=== PATIENT | female | born 1930 | race Caucasian/White ===

== ENCOUNTER 2020-09-07 10:27 | Inpatient (IN) | payer MEDICARE, MEDICAID ==
[~2020-09-07] VITALS: Ht 157.5 cm; Wt 60.7 kg
--- NOTE | ~2020-09-07 | CON ---
[address] [address] CONSULTATION Name: LAURA LOGAN Room: [address] IN M.R.#: [id number] Admission: 09/07/20 Attend Phys: Florence Moctezuma Discharge: Date of : [birth year] Report #: [id number] THIS REPORT FOR: cc: Tevin Lutz William F. DO Biggs, F. Douglas MD [facility] ~ DATE OF CONSULTATION: 09/12/2020 CARDIOLOGY CONSULTATION HISTORY OF PRESENT ILLNESS: I was asked by Dr. Nga Jackson to see this 89-year-old white female in Cardiology consultation for evaluation and treatment of tachycardia. This lady is in atrial fibrillation with rapid ventricular response. She was in atrial fibrillation when she came to the ER on 09/07/2020. She is unable to give a history secondary to dementia. She was found unresponsive, I believe while eating, and she was found to be hypotensive. That was at the shelter. She was brought in and felt to be septic. She apparently has urosepsis. She was hypotensive. She did respond to treatment. She was apparently ready to go home today and had become tachycardic and hypotensive. I believe her heart rate was around 140 and her blood pressure was 90/50. Additional problems include hypercholesterolemia, seizure disorder, COPD and hypertension. She has been on Eliquis for anticoagulation and she has been on diltiazem CD 180 mg daily for rate control. She was also on Toprol-XL 25 mg daily, presumably for both her blood pressure and rate control. Again, she cannot give a history. Her EKG initially in the ER showed atrial fibrillation with a rapid ventricular response. The heart rate was 104, I believe. There is low voltage in the extremities, in the precordial leads. There were nonspecific T abnormalities in the anterior leads. There was a prolonged QT interval. All of her strips in fact show atrial fibrillation. Some of them are within normal rate, some of them are tachycardic. She had atrial fibrillation with a rapid rate on the 1st and on the 2nd. So, essentially she has been having atrial fibrillation with a rapid rate since she came in, on and off at least. Her EKG today shows atrial fibrillation with a rapid ventricular response. There is low voltage QRS. 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 There are no acute changes here. There are nonspecific T abnormalities. PAST MEDICAL HISTORY: As described above. HOME MEDICATIONS: Included Eliquis 5 mg b.i.d., atorvastatin 80 mg daily at bedtime, Omnicef 300 mg b.i.d., diltiazem extended release 180 mg daily, Prozac 20 mg daily, Lasix 20 mg daily, looks like DuoNeb p.r.n., Keppra 750 mg b.i.d., melatonin 3 mg at bedtime, memantine extended release 21 mg daily, metoprolol succinate or Toprol-XL 25 mg b.i.d., mirtazapine 7.5 mg daily, potassium 20 mEq daily. [address] [place] [address] CONSULTATION Name: DOREENLAURA M Room: [address] IN M.R.#: [id number] Admission: 09/07/20 Attend Phys: Florence Moctezuma Discharge: Date of : [birth year] Report #: [id number] ALLERGIES: INCLUDE MORPHINE AND SULFA. REVIEW OF SYSTEMS: Unobtainable from her. FAMILY HISTORY: Also unobtainable. SOCIAL HISTORY: She does not smoke. Apparently, no alcohol use, no drug use. In truth, the social history is actually unobtainable as well, it is obtained from the chart. Admission chest x-ray showed no acute cardiopulmonary process, chronic interstitial lung disease, right-sided PICC line, terminates in the atriocaval junction. PHYSICAL EXAMINATION: GENERAL: She presents as a well-developed, well-nourished elderly white female in no acute distress. She cannot carry on a conversation. HEENT: Head is atraumatic. Eyes are clear. NECK: Supple. There is no jugular venous distention or hepatojugular reflux. Thyroid is not enlarged. There is no adenopathy. SKIN: Warm and dry. Mucous membranes are moist. LUNGS: Clear to auscultation and percussion. There were decreased breath sounds and an increased expiratory phase bilaterally. HEART: Revealed normal first and second heart sound. There is no S4. There is no S3. There are no murmurs, rubs, thrills, heaves or gallops. PMI is nondisplaced. Rhythm was rapid and irregularly irregular. ABDOMEN: Soft, flat, nontender, no palpable masses and no organomegaly. EXTREMITIES: Reveal no cyanosis, clubbing or edema. The patient did not mentate normally, but did move all extremities normally. IMPRESSION: 1. Atrial fibrillation with rapid ventricular response in the context of chronic atrial fibrillation and loss of rate control. 2. Urosepsis. 3. Hypotension. 4. Hypercholesterolemia. 5. Seizure disorder. 6. Chronic obstructive pulmonary disease. 7. Essential hypertension. 8. 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 RECOMMENDATIONS: Since she is hypotensive, we cannot give her a beta vincent or calcium channel vincent. It would be reluctant to give her amiodarone in this [address] [address] CONSULTATION Name: LAURA LOGAN Room: [address] IN .R.#: [id number] Admission: 09/07/20 Attend Phys: Florence Moctezuma Discharge: Date of : [birth year] Report #: [id number] context as well. So, she should be digitalized and hopefully with rate control, her blood pressure will come up. If rate control does not bring her blood pressure up, then she will need something like Levophed or Atilio-Synephrine to bring her blood pressure up. She may need fluids. I would check a CBC to see if she is bleeding and check to see if she is septic. Apparently, urine was not sent for culture, so she is being treated blindly. Thank you very much for asking me to see the patient. If there are any questions, please feel free to contact me. By: [id number]. Jus Conway MD, FACC /nt
[2020-09-07 10:29] VITALS: BP 88/46
--- NOTE | 2020-09-07 10:39 | NUR ---
PT DPOA CONTACTED AND PERMISSIN GIVEN TO TREAT PT.
[2020-09-07] MEDS ORDERED: IPRAT-ALBUT 0.5-3 ML INH (10:46)
[2020-09-07] MEDS ORDERED: KEPPRA750 MG PO (10:46)
[2020-09-07] MEDS ORDERED: MELATONIN3 M1 PO (10:47)
[2020-09-07] MEDS ORDERED: MEMANTINE HCL E21 MG PO (10:47)
[2020-09-07] MEDS ORDERED: TOPROL XL25 MG PO (10:47)
[2020-09-07] MEDS ORDERED: POTASSIUM20 PO (10:48)
[2020-09-07] MEDS ORDERED: MIRTAZAPINE7.5 MG PO (10:48)
[2020-09-07 10:59] LABS: URINE BILIRUBIN NEGATIVE (Negative); URINE BLOOD 2+ (Negative); URINE CLARITY CLEAR; URINE COLOR YELLOW; URINE GLUCOSE-RANDOM NEGATIVE (Negative); URINE KETONES NEGATIVE (Negative); URINE LEUKOCYTES 3+ (Negative); URINE NITRITE POSITIVE (Negative); URINE PROTEIN TRACE (Negative); URINE UROBILINOGEN 0.2 E.U./dl (0.2-1.0)
--- NOTE | 2020-09-07 11:02 | NUR ---
IV INSERTED BY IVIS BENAVIDES IN THE PATIENT'S RT AC.
[2020-09-07 11:09] LABS: ABSOLUTE BASOPHILS 0.1 thou/uL (0.0-0.2); ABSOLUTE EOSINOPHILS 0.1 thou/uL (0.0-0.7); ABSOLUTE LYMPHOCYTES 2.3 thou/uL (0.8-5.3); ABSOLUTE MONOCYTES 0.5 thou/uL (0.0-1.2); ABSOLUTE NEUTROPHILS 9.8 thou/uL (1.6-8.1); BASOPHILS 1.1 %; EOSINOPHILS 0.8 %; HEMATOCRIT 33.4 % (37.0-47.0); LYMPHOCYTES 17.9 %; MONOCYTES 3.7 %; MPV 9.5 fl. (7.2-11.1); NUCLEATED RBCS 0 /100WBC; PLATELET COUNT* 294 thou/uL (150-400); POLYS 76.5 %; RBC 3.45 mil/uL (4.20-5.00); RDW-CV 15.1 % (10.5-14.5); WBC 12.8 thou/uL (4.0-11.0)
[2020-09-07 11:20] LABS: MUCUS 0-3 Light strn/LPF (None Seen); SQUAMOUS 0-3 Few /LPF (0-3); URINE RBC 3-10 Few /HPF (0-2); URINE WBC >25 Many /HPF (0-5)
[2020-09-07 11:20] LABS: CALCIUM 8.6 mg/dL (8.5-10.1); CREATININE 2.3 mg/dL (0.6-1.3)
[2020-09-07 11:21] LABS: CASTS None Seen /LPF (None Seen); CRYSTALS None Seen /LPF (None Seen)
[2020-09-07 11:25] LABS: ALBUMIN 2.8 g/dL (3.4-5.0); TOTAL BILIRUBIN 0.5 mg/dL (<0.1-1.0); TOTAL PROTEIN 6.8 g/dL (6.4-8.2)
--- NOTE | 2020-09-07 14:03 | NUR ---
SPOKE TO DR GORDON REGARDING HYPOTENSIVE PATIENT. REQUESTED 1 BAG OF NS AND TO RECHECK, CALL HER WITH RESULTS. IF NOT SHE WILL BE PLACED ON LEVOPHED
--- NOTE | 2020-09-07 14:27 | NUR ---
DR QUEZADA AT BEDSIDE SPEAKING TO THE PATIENT. PATIENT REPORTS SHE REQUEST TO BE A DNR AT THIS TIME. FAMILY MEMBER BROUGHT OVER BLOOD PRESSURE READING PAPERWORK FOR TREND. SEE HARD COPY. DR QUEZADA TO PLACE ORDERS
--- NOTE | 2020-09-07 14:29 | EKG ---
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 : 1930 Requested By: Carlos Blum Order Number: [id number] MD: Edouard Doan Measurements Intervals [place] Rate: 104 P: SC: QRS: 14 QRSD: 78 T: 236 QT: 429 QTc: 565 Interpretive Statements Atrial fibrillation Low voltage, extremity and precordial leads Nonspecific T abnormalities, anterior leads Prolonged QT interval No previous ECG available for comparison Electronically Signed On 09-07-2020 14:28:56 CDT by Edouard Doan [email or web address] <ELECTRONICALLY SIGNED> By: Edouard Doan MD, [facility] 09/07/20 1428 1030 1030 Edouard Doan MD, [facility] /EPI
--- NOTE | 2020-09-07 15:28 | NUR ---
CONSENTS SIGNED, KENNEDY LANGSTON AT BEDSIDE FOR PICC LINE
[2020-09-07 15:33] LABS: CREATININE 1.7 mg/dL (0.6-1.3); POTASSIUM 4.6 mmol/L (3.5-5.1)
--- NOTE | 2020-09-07 16:04 | NUR ---
RIGHT BASILIC VESSEL ACCESSED FOR 5 [place] LEONEAN TRIPLE LUMEN PICC. LINE PRE-TRIMMED TO 38 CM AND ADVANCED TO THE ZERO LUIS E WITH NO RESISTANCE MET. UPPER ARM CIRCUMFERNCE ABOVE INSERTION SITE= 10". POST PROCEDURE CXR SHOWS LOWER SVC TERMINATION. GUIDEWIRE REMOVED, LINE FLUSHED, AND INSERTION SITE DRESSED. REPORT GIVEN TO SONDRA LANGSTON.
[2020-09-07 20:16] VITALS: BP 106/45
--- NOTE | 2020-09-07 20:30 | NUR ---
PT ADMITTED TO FLOOR PER CART ACCOMPANIED BY ER STAFF. PT AO TO SELF, GIVES ME HER NAME BUT DOESNT ANSWER ANY OTHER QUESTIONS AT THIS TIME. EYES OPEN AND ALERT, MOANS WHEN TRANSFERRED FROM CART TO BED. PT MOVING ALL EXTREMITIES. ASSESSMENT PERFORMED, [facility]. JORI PICC ABX INFUSING. L AC SODIUM BICARB INFUSING. TELE MONITOR PLACED ON, AFIB. WILL CONTINUE TO MONITOR.
[2020-09-07 21:09] VITALS: BP 96/37
[2020-09-07] MEDS ORDERED: LIPITOR80 MG PO (23:36)
[2020-09-07] MEDS ORDERED: DILTIAZEM ER180 M2 PO (23:37)
[2020-09-07] MEDS ORDERED: ELIQUIS5 MG PO (23:39)
[2020-09-07] MEDS ORDERED: PROZAC20 M1 PO (23:42)
[2020-09-07] MEDS ORDERED: FUROSEMIDE 20 M20 MG PO (23:43)
[2020-09-07 23:50] VITALS: BP 94/50
[2020-09-08 05:00] VITALS: BP 106/55
--- NOTE | 2020-09-08 06:58 | NUR ---
PT SLEPT ALL NIGHT AFTER ADMIT, ANSWERING SOME YES AND NO QUESTIONS APPROPRIATELY, AO TO SELF, CALM. PT TURNED AND REPOSITIONED Q2 HOURS AND PRN FOR SKIN CARE AND COMFORT. ISAACS DRAINING CLOUDY YELLOW URINE. JORI PICC, ABX GIVEN ORDERED. LAC SODIUM BICARB INFUSION RUNNING. TELE AFIB. MIDODRINE GIVEN ONCE THIS SHIFT. LAST BP 106/55. AM LABS, TO HAVE ECHO TODAY. ROOM AIR SAT 98%. BED ALARM ON FOR SAFETY, CALL LITE IN EASY REACH.
[2020-09-08 07:30] VITALS: BP 109/54
--- NOTE | 2020-09-08 11:41 | 2DMMODE ---
[place] [address] 2 D/M-MODE ECHOCARDIOGRAM Name: CORNELL LOGANN Florence Room: [address] IN .R.#: [id number] Admission: 09/07/20 Attend Phys: Princess Daniels Discharge: Date of : [birth year] Date of Service: 09/08/20 1140 Report #: [id number] THIS REPORT FOR: cc: Tevin Lutz,Tevin Ashraf,Edouard Sue MD [facility] ~ APPROVED REPORT Study performed: 09/08/2020 09:29:45 EXAM: Comprehensive 2D, Doppler, and color-flow Echocardiogram Patient Location: Bedside BSA: 1.60 HR: 94 bpm BP: 106/55 mmHg Other Information Study Quality: Technically Limited Technically limited study due to inability to position patient. Indications RV Dilation 2D Dimensions IVSd: 10.61 (7-11mm) LVOT Diam: 16.40 (18-24mm) LVDd: 29.07 mm PWd: 10.10 (7-11mm) Ascending Ao: 28.65 (22-36mm) LVDs: 20.47 (25-40mm) Aortic Root: 24.42 mm Volumes Left Atrial Volume (Systole) LA ESV Index: 52.80 mL/m2 Aortic Valve AoV Peak Dwight.: 1.29 m/s AO Peak Gr.: 6.63 mmHg LVOT Max P.52 mmHg AO Mean Gr.: 3.72 mmHg LVOT Mean P.77 mmHg LVOT Max V: 0.62 m/s AO V2 VTI: 27.96 cm LVOT Mean V: 0.41 m/s ROLANDO (VTI): 1.03 cm2 LVOT V1 VTI: 13.69 [place] [address] 2 D/M-MODE ECHOCARDIOGRAM Name: LAURA LOGAN Room: [address] IN ..#: [id number] Admission: 09/07/20 Attend Phys: Princess Daniels Discharge: Date of : [birth year] Date of Service: 09/08/20 1140 Report #: [id number] Mitral Valve MV Decel. Time: 208.09 ms MV PHT: 60.35 ms MVA (PHT): 3.65 cm2 TDI Medial E' Dwight.: 0.08 m/s Lateral E' Dwight.: 0.11 m/s Pulmonary Valve PV Peak Dwight.: 0.75 m/s PV Peak Gr.: 2.28 mmHg Tricuspid Valve RAP Estimate: 10.00 mmHg TR Peak Gr.: 28.71 mmHg RVSP: 38.71 mmHg PA Pressure: 38.71 mmHg Left Ventricle The left ventricle is normal size. There is normal LV segmental wall motion. There is normal left ventricular wall thickness. Left ventricular systolic function is normal. The left ventricular ejection fraction is within the normal range. LVEF is 65%. This study is not technically sufficient to allow evaluation of the LV diastolic function due to atrial fibrillation. Right Ventricle The right ventricle is normal size. The right ventricular systolic function is normal. Atria Left atrium is moderately dilated. Right atrium is mildly dilated. Aortic Valve The aortic valve is normal in structure. No aortic regurgitation is present. There is no aortic valvular stenosis. Mitral Valve There is mitral annular calcification. Mild mitral regurgitation. No evidence of mitral valve stenosis. Tricuspid Valve The tricuspid valve is normal in structure. Trace to mild tricuspid regurgitation. [place] [address] 2 D/M-MODE ECHOCARDIOGRAM Name: LOGANLAURA M Room: [address]#: [id number] Admission: 09/07/20 Attend Phys: Princess Daniels Discharge: Date of : [birth year] Date of Service: 09/08/20 1140 Report #: [id number] The pulmonary valve is normal in structure. There is no pulmonic valvular regurgitation. Great Vessels The aortic root is normal in size. Aortic arch is not well visualized. IVC is normal in size and collapses >50% with inspiration. Pericardium There is no pericardial effusion. <Conclusion> The left ventricle is normal size. There is normal left ventricular wall thickness. Left ventricular systolic function is normal. The left ventricular ejection fraction is within the normal range. LVEF is 65%. This study is not technically sufficient to allow evaluation of the LV diastolic function due to atrial fibrillation. The right ventricle is normal size. Left atrium is moderately dilated. Right atrium is mildly dilated. The aortic valve is normal in structure. There is mitral annular calcification. Mild mitral regurgitation. The tricuspid valve is normal in structure. Trace to mild tricuspid regurgitation. IVC is normal in size and collapses >50% with inspiration. There is no pericardial effusion. There is normal LV segmental wall motion. <ELECTRONICALLY SIGNED> By: Edouard Doan MD, FACC 09/08/20 1140 1140 1140 Edouard Doan MD, FACC /INF
[2020-09-08 12:00] VITALS: BP 109/56
[2020-09-08 14:17] LABS: HEMATOCRIT 26.4 % (37.0-47.0); HEMOGLOBIN 9.1 gm/dL (12.0-15.0); MCH 32.1 pg (26.0-34.0); MCHC 34.4 g/dL (28.0-37.0); MCV 93.1 fL (80.0-100.0); MPV 9.2 fl. (7.2-11.1); NUCLEATED RBCS 0 /100WBC; RBC 2.83 mil/uL (4.20-5.00); RDW-CV 14.6 % (10.5-14.5)
[2020-09-08 14:34] LABS: PLATELET COUNT* 198 thou/uL (150-400)
[2020-09-08 14:35] LABS: ALBUMIN 2.2 g/dL (3.4-5.0); CALCIUM 7.3 mg/dL (8.5-10.1); CREATININE 1.2 mg/dL (0.6-1.3); TOTAL BILIRUBIN 0.3 mg/dL (<0.1-1.0); TOTAL PROTEIN 5.4 g/dL (6.4-8.2)
[2020-09-08 14:38] LABS: POTASSIUM 2.3 mmol/L (3.5-5.1)
[2020-09-08 14:59] LABS: ABSOLUTE LYMPHOCYTES 0.7 thou/uL (0.8-5.3); ABSOLUTE MONOCYTES 0.2 thou/uL (0.0-1.2); ABSOLUTE NEUTROPHILS 9.1 thou/uL (1.6-8.1); PLATELET ESTIMATE ADEQUATE
--- NOTE | 2020-09-08 15:25 | NUR ---
ALONZO spoke with staff at [facility], Pt resides on their LTC mem care unit. Pt is normally wc bound, but over the past week has become more bed bound. ALONZO spoke with Pt's granddtr, MEME. MEME is unsure if she wants Pt to return to [facility] at dc, d/t multiple concerns. CM discussed different options with DPOA, MEME requested that referrals be sent to the following facilities for possible LTC [facility]-faxed [facility] [place] [facility]-faxed [facility]-no beds [facility]-no beds [facility]-faxed ALONZO explained that if a LTC was not located upon dc, plan would need to be for Pt to return to [facility]. MEME plans to tour facilities this weekend and will update ALONZO on Friday with choice. ALONZO completed an Outside of the Hospital DNR with Pt's dtr/DPOA. No weekend dc plans.
[2020-09-08 16:18] VITALS: BP 90/43
--- NOTE | 2020-09-08 19:53 | NUR ---
A&O X 1 PERSON. HEART TONES IRREGULAR. IN A-FIB WITH CONTROLLED RATE. LUNGS DIMINISHED. PEDAL PULSES PRESENT NO EDEMA NOTED. PICC RIGHT UPPER ARM WITH TRIPLE LUMEN. IV RIGHT FA INTACT AND PATENT. NS AT 60MLS/HR. ISAACS TO DEPENDENT DRAINAGE LIGHT YELLOW WITH SEDIMENT. Q 2 TURN. NO BM THIS SHIFT. PT POTASSIUM 2.[address] KRAMER AT 1448 AND AGAIN 1801. NEW ORDERS RECEIVED AND CARRIED OUT.NO C/O PAIN. WILL CONTINUE TO MONITOR. PT IS FEEDER AND ADVANCED TO [facility] SOFT DIET WITH CHOPPED MEATS. PT ATE FAIR BY SOMEONE FEEDING HER.
[2020-09-08 20:30] VITALS: BP 98/53
[2020-09-09 01:13] VITALS: BP 125/66
[2020-09-09 06:04] VITALS: BP 126/60
[2020-09-09 08:00] VITALS: BP 141/76
[2020-09-09 11:57] LABS: ABSOLUTE BASOPHILS 0.1 thou/uL (0.0-0.2); ABSOLUTE LYMPHOCYTES 0.9 thou/uL (0.8-5.3); ABSOLUTE MONOCYTES 0.4 thou/uL (0.0-1.2); ABSOLUTE NEUTROPHILS 11.3 thou/uL (1.6-8.1); BASOPHILS 0.6 %; HEMATOCRIT 27.8 % (37.0-47.0); HEMOGLOBIN 9.5 gm/dL (12.0-15.0); LYMPHOCYTES 6.9 %; MCH 32.3 pg (26.0-34.0); MCHC 34.2 g/dL (28.0-37.0); MCV 94.4 fL (80.0-100.0); MONOCYTES 2.8 %; MPV 9.1 fl. (7.2-11.1); NUCLEATED RBCS 0 /100WBC; PLATELET COUNT* 238 thou/uL (150-400); POLYS 89.7 %; RBC 2.94 mil/uL (4.20-5.00); RDW-CV 15.3 % (10.5-14.5); WBC 12.6 thou/uL (4.0-11.0)
[2020-09-09 12:00] VITALS: BP 136/73
[2020-09-09 12:05] LABS: CALCIUM 7.7 mg/dL (8.5-10.1); CREATININE 1.1 mg/dL (0.6-1.3); MAGNESIUM 1.4 mg/dL (1.8-2.4)
[2020-09-09 16:00] VITALS: BP 107/62
[2020-09-10 01:06] VITALS: BP 125/61
[2020-09-10 05:15] VITALS: BP 127/82
[2020-09-10 08:00] VITALS: BP 141/81
[2020-09-10 12:00] VITALS: BP 129/75
[2020-09-10 15:54] LABS: CALCIUM 7.7 mg/dL (8.5-10.1); CREATININE 0.9 mg/dL (0.6-1.3)
[2020-09-10 15:55] LABS: POTASSIUM 2.7 mmol/L (3.5-5.1)
[2020-09-10 16:00] VITALS: BP 130/80
[2020-09-10 19:45] VITALS: BP 104/56
[2020-09-10 21:45] LABS: CALCIUM 7.6 mg/dL (8.5-10.1); CREATININE 1.1 mg/dL (0.6-1.3); POTASSIUM 3.2 mmol/L (3.5-5.1)
[2020-09-10 21:49] LABS: MAGNESIUM 1.7 mg/dL (1.8-2.4); PHOSPHORUS* 1.7 mg/dL (2.5-4.9)
[2020-09-11] VITALS (7 sets, daily range): BP systolic 108–138; BP diastolic 6–73
--- NOTE | 2020-09-11 06:07 | NUR ---
PT SLEPT ON AND OFF OVERNIGHT. ANSWERS YES AND NO QUESTIONS, ABLE TO MAKE NEEDS KNOWN. AO TO SELF, SITUATION, CALM. TELE AFIB,ISAACS DRAINING YELLOW URINE. TAKES MEDS CRUSHED IN APPLESAUCE WITHOUT DIFFICULTY. JORI PICC , POTASSIUM REPLACED THIS SHIFT,AM LABS DRAWN. PT TURNED AND REPOSITIONED Q2 HOURS AND PRN FOR SKIN CARE AND COMFORT. CALL LITE IN EASY REACH. BED ALAMR ON FOR SAFETY.
--- NOTE | 2020-09-11 15:42 | NUR ---
Therapies to see. Anticipate dc tomorrow. [facility] has accepted clinically, will reach out to family to discuss further. CM spoke with [facility] at [facility] (now [facility]), they requested nurse's notes, await decision to accept LTC. CM contacted [facility]-no LTC beds and have a waiting list. CM left for [facility] [place] admissions, refaxed LTC referral to [facility], awaiting call back.
[2020-09-12 00:28] VITALS: BP 143/89
[2020-09-12 04:44] LABS: HEMATOCRIT 27.4 % (37.0-47.0); HEMOGLOBIN 9.5 gm/dL (12.0-15.0); MCH 32.5 pg (26.0-34.0); MCHC 34.5 g/dL (28.0-37.0); MCV 94.2 fL (80.0-100.0); MPV 9.2 fl. (7.2-11.1); RBC 2.91 mil/uL (4.20-5.00); RDW-CV 15.1 % (10.5-14.5); WBC 9.2 thou/uL (4.0-11.0)
[2020-09-12 04:51] VITALS: BP 155/76
[2020-09-12 04:51] LABS: ALBUMIN 2.4 g/dL (3.4-5.0); CALCIUM 7.9 mg/dL (8.5-10.1); MAGNESIUM 1.5 mg/dL (1.8-2.4); POTASSIUM 3.4 mmol/L (3.5-5.1); TOTAL BILIRUBIN 0.5 mg/dL (<0.1-1.0); TOTAL PROTEIN 5.5 g/dL (6.4-8.2)
--- NOTE | 2020-09-12 06:34 | NUR ---
PT SLEPT OFF AND ON OVERNIGHT. DENIES PAIN OR PROBLEMS, ORIENTED TO SELF AND SITUATION, CONFUSED AT TIMES. JORI PICC SL, AM LABS DRAWN. TELE AFIB. DNR.TURNED AND REPOSITIONED Q2 HOURS AND PRN SHE WOULD ALLOW. TAKING PILLS CRUSHED IN APPLESAUCE,ONE DOSE POTASSIUM 40MEQ AND MAG GIVEN THIS MORNING PER PROTOCOL. CALL LITE IN EASY REACH, BED ALRM ON FOR SAFETY. CM FOLLOWING FOR DC PLAN TO SNF.
[2020-09-12] MEDS ORDERED: CEFDINIR300 MG PO (07:46)
--- NOTE | 2020-09-12 10:13 | NUR ---
Pt medically stable to dc, orders written. ALONZO spoke with Pt's granddtr, she requested that a LTC referral be faxed to [facility], ALONZO spoke with Barby, admissions at , faxed referral, await decision to accept. [facility]min continues to be able to accept clinically. Fredy Garcia declined Pt for LTC. [facility] p:[phone] f:[phone]
[2020-09-12 12:00] VITALS: BP 93/66
--- NOTE | 2020-09-12 12:32 | NUR ---
Pt discharging to [facility] today. Faxed dc orders. Chart copied. Nurse report number is [id number]. Updated Pt's granddaughter, in agreement with POC. [facility] to [place] [facility] between 230-300pm
[2020-09-12 16:00] VITALS: BP 127/73
[2020-09-12 16:58] LABS: ABSOLUTE BASOPHILS 0.1 thou/uL (0.0-0.2); ABSOLUTE EOSINOPHILS 0.2 thou/uL (0.0-0.7); ABSOLUTE LYMPHOCYTES 1.2 thou/uL (0.8-5.3); ABSOLUTE MONOCYTES 0.4 thou/uL (0.0-1.2); ABSOLUTE NEUTROPHILS 7.4 thou/uL (1.6-8.1); BASOPHILS 0.7 %; EOSINOPHILS 2.5 %; HEMATOCRIT 28.5 % (37.0-47.0); HEMOGLOBIN 9.7 gm/dL (12.0-15.0); LYMPHOCYTES 12.8 %; MCH 32.1 pg (26.0-34.0); MCHC 33.9 g/dL (28.0-37.0); MCV 94.5 fL (80.0-100.0); MONOCYTES 4.4 %; MPV 8.4 fl. (7.2-11.1); NUCLEATED RBCS 0 /100WBC; PLATELET COUNT* 179 thou/uL (150-400); POLYS 79.6 %; RBC 3.02 mil/uL (4.20-5.00); RDW-CV 15.2 % (10.5-14.5); WBC 9.4 thou/uL (4.0-11.0)
[2020-09-12 17:03] LABS: CALCIUM 7.9 mg/dL (8.5-10.1); CREATININE 0.9 mg/dL (0.6-1.3); POTASSIUM 3.3 mmol/L (3.5-5.1)
[2020-09-12 17:13] LABS: MAGNESIUM 1.6 mg/dL (1.8-2.4); PHOSPHORUS* 3.1 mg/dL (2.5-4.9)
[2020-09-12 20:00] VITALS: BP 160/68
[2020-09-13 00:32] VITALS: BP 152/85
[2020-09-13 05:02] LABS: CALCIUM 7.8 mg/dL (8.5-10.1); CREATININE 0.9 mg/dL (0.6-1.3); POTASSIUM 3.1 mmol/L (3.5-5.1)
[2020-09-13 05:54] VITALS: BP 128/78
--- NOTE | 2020-09-13 09:34 | EKG ---
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 : 1930 Requested By: Princess Daniels Order Number: [id number] Reading MD: Quirino Candelario Measurements Intervals [place] Rate: 139 P: AR: QRS: 8 QRSD: 61 T: 104 QT: 339 QTc: 516 Interpretive Statements Atrial fibrillation with rapid V-rate Low voltage, extremity and precordial leads Probable anteroseptal infarct, old Nonspecific T abnormalities, lateral leads Compared to ECG 09/07/2020 10:30:42 Myocardial infarct finding now present Prolonged QT interval no longer present T-wave abnormality still present rate increased Electronically Signed On 09-13-2020 9:34:43 CDT by Quirino Candelario [email or web address] <ELECTRONICALLY SIGNED> By: Quirino Candelario MD, [facility] 09/13/20 0934 1538 1538 Quirino Candelario MD, [facility] /EPI
[2020-09-13 10:18] VITALS: BP 142/62
[2020-09-13 12:22] VITALS: BP 142/73
--- NOTE | 2020-09-13 14:19 | NUR ---
Cardiology following. Anticipate dc tomorrow to [facility] LTC. Updated granddaughter and LTC.
[2020-09-13 16:39] VITALS: BP 144/76
[2020-09-13 19:35] VITALS: BP 116/52
[2020-09-14 00:21] VITALS: BP 124/68
[2020-09-14 04:04] VITALS: BP 137/55
--- NOTE | 2020-09-14 05:21 | NUR ---
ASSUMED PATIENT CARE AT 1900. ASSESSMENT COMPLETED CHARTED. CARDIAC MONITORING IN PLACE. FALL PRECAUTIONS IN PLACE FOR PATIENT SAFETY. HOURLY ROUNDING IN PLACE FOR PATIENT SAFETY. BED LOCKED AND IN LOWEST POSITION. CLWR.
[2020-09-14 06:07] LABS: CALCIUM 7.8 mg/dL (8.5-10.1); CREATININE 0.9 mg/dL (0.6-1.3); POTASSIUM 3.3 mmol/L (3.5-5.1)
[2020-09-14 08:00] VITALS: BP 141/67
[2020-09-14 12:00] VITALS: BP 132/58
[2020-09-14] MEDS ORDERED: CARDIZEM CD120 MG PO (13:41)
--- NOTE | 2020-09-14 13:41 | NUR ---
Pt medically stable to dc to [facility] today. Faxed dc orders. Chart copied. Nurse report number is [id number]. Updated Pt's granddtr. [facility] to [place] between 4-430
[2020-09-14] MEDS ORDERED: POTASSIUM20 PO (13:43)
[2020-09-14 16:00] VITALS: BP 119/55
== END 2020-09-14 16:50 | DRG 871 ==
LOC: M.ERS 10:27 → M.2W 11:44 → M.TBA-ER 11:44 → M.2W 20:43
PROVIDERS: Emergency Medicine; Internal Medicine; Internal Medicine Cardiovascular Disease; ADMIT Internal Medicine; ATTEND Internal Medicine
PROC: 02HV33Z Insertion of Infusion Device into Superior Vena Cava, Percutaneous Approach (ICD-10-PCS; principal; 2020-09-07)
DX: A41.9 Sepsis, unspecified organism (principal); R65.21 Severe sepsis with septic shock; G93.41 Metabolic encephalopathy; N17.0 Acute kidney failure with tubular necrosis; I48.20 Chronic atrial fibrillation, unspecified; N30.01 Acute cystitis with hematuria; I10 Essential (primary) hypertension; E78.00 Pure hypercholesterolemia, unspecified; G40.909 Epilepsy, unspecified, not intractable, without status epilepticus; F03.90 Unspecified dementia, unspecified severity, without behavioral disturbance, psychotic disturbance, mood disturbance, and anxiety; J44.9 Chronic obstructive pulmonary disease, unspecified; D64.9 Anemia, unspecified; Z20.822 Contact with and (suspected) exposure to COVID-19; Z88.6 Allergy status to analgesic agent; Z88.2 Allergy status to sulfonamides; Z99.3 Dependence on wheelchair